=== PATIENT | female | born 1945 | race African-American/Black ===

== ENCOUNTER 2020-08-30 19:16 | Emergency (ER) | payer OTHER ==
[~2020-08-30] VITALS: Ht 165.1 cm; Wt 140.6 kg
[2020-08-30 22:13] VITALS: BP 169/79
== END 2020-08-30 22:17 | disposition home or self-care (01) ==
LOC: ER 19:16
DX: J95.03 Malfunction of tracheostomy stoma (principal); I10 Essential (primary) hypertension; J44.9 Chronic obstructive pulmonary disease, unspecified